=== PATIENT | male | born 1980 | race Caucasian/White ===

== ENCOUNTER 2018-09-19 14:48 | Emergency (ER) | payer SELFPAY ==
[2018-09-19 15:17] VITALS: BP 132/68
--- NOTE | 2018-09-19 15:54 | UC ---
"Minor Trauma HPI - HPI Summary HPI Summary: Patient states yesterday he was standing on a ladder Ze 7 feet. Patient states the ladder slipped and he fell landing on his back. Patient states he did not strike his head and did not lose consciousness. Patient states he's got pain in his back where he struck to 3 trunk when he fell. Patient also with pain in his right shoulder. Patient without blood from his HEENT. No neck pain. No chest pain or shortness of breath. No abdominal pain. No nausea vomiting. No hematuria. Patient has taken Motrin with little improvement. Last Motrin was approximately 8:00 this morning. Patient has been able to eat and drink. Patient states he was unable to get comfortable last night due to the pain in his back. Patient without any paresthesias down her arms or back. Patient does have a history of right rotator cuff injury but never had surgery. Patient states he intermittently uses marijuana and has used it for pain with little improvement. Patient states his significant other drove him here today. Patient's medications reviewed this visit. - History of Current Complaint Chief Complaint: UCBackPain Stated Complaint: SP FALL-BACK/RT SHOULDER PAIN Time Seen by Provider: 09/19/18 15:51 Hx Obtained From: Patient, Other: - Faustina Aguero | Reference #: [id number] [place] Onset/Duration: Sudden Onset Severity Initially: Moderate Severity Currently: Moderate Pain Intensity: 8 Pain Scale Used: 0-10 Numeric - Allergies/Home Medications Allergies/Adverse Reactions: Allergies Allergy/AdvReac Type Severity Reaction Status Date / Time No Known Allergies Allergy Verified 09/19/18 15:09 PMH/Surg Hx/FS Hx/Imm Hx Previously Healthy: Yes - Surgical History Surgical History: Yes Surgery Procedure, Year, and Place: appendectomy 1999 - Family History Known Family History: Positive: Non-Contributory - Social History Occupation: Employed Part-time Lives: With Family Alcohol Use: None Substance Use Type: None Substance Use Comment - Amount & Last Used: opiate addiction Smoking Status (MU): Current Every Day Smoker Type: Cigarettes Amount Used/How Often: 1/2-1 PK DAILY Review of Systems All Other Systems Reviewed And Are Negative: Yes Skin: Positive: Bruising, Other - abraison Eyes: Positive: Negative ENT: Positive: Negative Respiratory: Positive: Negative Cardiovascular: Positive: Negative Gastrointestinal: Positive: Negative Genitourinary: Positive: Negative Motor: Positive: Other - right shoulder, right back Musculoskeletal: Positive: Other: - right shoulder, low back Neurological: Positive: Negative Psychological: Positive: Negative Physical Exam - Summary Physical Exam Summary: Vital Signs Reviewed: Yes A+Ox3, mild discomfort Eyes: Conjunctiva Clear, RABIA. EOM intact and full ENT: Hearing grossly normal TM x 2 clear, no hemotymp b/l, no septal hematoma b /l mmoist, uvula midline, no exudate, no erythema, no blood oropharynx Neck: Positive: Supple Respiratory: Positive: No respiratory distress, No accessory muscle use + CTA throughout no w/r Cardiovascular: RRR nl s1, s2 no m/r CBT <2 sec abd soft + BS nt/nd no guarding, no distension Musculoskeletal Exam: Full AROM c spine. No spinous process pain c/t/l/s discomfort distal right paraspinal area distal thoracic, upper lumbar + SLE b/ l + flex/ext knee, ankle + great toe extension + TTP right anterior shoulder. No deformity + flex/ext elbow with pain in right anterior shoulder Neurological: Positive: Alert, + sensation throughout + thumb up, a ok, finger spread, finger cross + gross b/l equal sensation LE Psychological: Positive: Normal Response To Family Skin: Positive: no rash, no ecchymosis, small 5mm slight abrasion left lower thoracic paraspinal area Triage Information Reviewed: Yes Vital Signs: Initial Vital Signs Temp 99.3 F 09/19/18 15:10 Pulse 82 09/19/18 15:10 Resp 15 09/19/18 15:10 BP 132/68 09/19/18 15:10 Pulse Ox 96 09/19/18 15:10 Diagnostics - Radiology No standard instances Radiology Interpretation Completed By: Radiologist - neg shoulder, neg thoracic , neg lumbar spine Re-Evaluation - Re-Evaluation First Eval Re-Evaluation Time: 17:30 Change: Improved Comment: Pt states he is feeling relaxed and better. reviewed imaging with pt Minor Trauma Course/Dx - Course Course Of Treatment: Patient presents with pain in his right anterior shoulder his right paraspinal lower thoracic upper lumbar area status post a fall. Patient without any other injuries. Patient's vital signs are stable. On exam patient in obvious discomfort. Patient with tenderness right anterior shoulder. Patient resists range of motion for testing. Patient also with pain and right paraspinal but no spinous process pain. Distally intact in upper Motrin remedies. We'll give patient IM Toradol his last Motrin was approximate 8 or 9 this morning. We'll give Flexeril, patient has a ride home. We'll place arm and right sling. We'll check imaging. Discussed at length patient comfortable agreement with plan. We'll reassess after imaging and treatment - Differential Dx/Diagnosis Provider Diagnosis: Spasm of muscle of lower back, Right shoulder strain Discharge - Sign-Out/Discharge Documenting (check all that apply): Patient Departure All imaging exams completed and their final reports reviewed: Yes - Discharge Plan Condition: Improved Disposition: HOME Prescriptions: Cyclobenzaprine TAB* [Flexeril 10 MG TAB*] 10 mg PO TID PRN #15 tab PRN Reason: muscle spasm Patient Education Materials: Contusion in Adults (ED), Shoulder Sprain (ED), Muscle Spasm (ED) Referrals: No Primary Care Phys,NOPCP [Primary Care Provider] - [facility] [Outside] Additional Instructions: - Okay to alternate ibuprofen (Advil, Motrin) 600mg and Tylenol (acetaminophen) every 3hours as needed for pain. Take with food. Do NOT take for more than 4-5 days. -Take flexeril - muscle relaxer as prescribed - Do NOT drive, operate machinery or drink alcohol while taking Flexeril. - For the first 2 days, apply ice to your injured areas. AFter 2 days, switch to heat. - before icing, slow gentle stretching exercises are important -Contact your doctor today to arrange a follow-up appointment next week. -If you pain is uncontrolled - go to an emergency department for further treatment -wear sling for comfort and support. relax your shoulder so the sling holds the weight of your shoulder - Take your arm outside of your sling and fully bend/stretching of elbow and makes small circles at your shoulder as demonstrated in the urgent car -apply ice (20 min at a time) every 2-3 hours for the next 2 days - you have been a given a referral to physical therapy - okay to schedule if pain and spasms persist -you have been given the contact information for the physician referral center - this office will assist you in scheduling with a new primary care provider - Billing Disposition and Condition Condition: IMPROVED Disposition: Home"
[2018-09-19] MEDS ORDERED: Ketorolac INJ* 60 MG/2 ML VIAL IM ONE (16:02)
[2018-09-19] MEDS ORDERED: Cyclobenzaprine TAB* 10 MG PO ONE (16:03)
== END 2018-09-19 18:05 | disposition home or self-care (01) ==
LOC: UCCORT 14:48
DX: M62.830 Muscle spasm of back (principal); S43.401A Unspecified sprain of right shoulder joint, initial encounter; W11.XXXA Fall on and from ladder, initial encounter; Y92.9 Unspecified place or not applicable; F17.210 Nicotine dependence, cigarettes, uncomplicated
CPT/HCPCS: 72070; 72100; 96372; 99203; A9270-GY; G0463; J1885

== ENCOUNTER 2020-07-14 15:51 | Inpatient (IN) ==
[2020-07-14 17:53] LABS: Urine Appearance Cloudy; Urine Bilirubin Negative (Negative); Urine Blood Negative (Negative); Urine Color Amber; Urine Glucose Negative (Negative); Urine Ketones 1+ (Negative); Urine Nitrite Negative (Negative); Urine Protein 1+(30 mg/dL) (Negative); Urine Urobilinogen Positive (Negative)
[2020-07-14 18:08] LABS: Urine Bacteria 1+ (Absent); Urine Red Blood Cell Absent (Absent); Urine White Blood Cell Trace(0-5/hpf) (Absent)
[2020-07-14 18:23] LABS: Urine Benzodiazepine Screen None Detected (None Detect); Urine Cannabinoids Screen Presumptive Positive (None Detect); Urine Opiates Screen None Detected (None Detect)
[2020-07-14] MEDS ORDERED: Haloperidol 5 mg/ml SDV IV/IM 5 MG/ML AMP IM ONE (20:08)
[2020-07-14] MEDS ORDERED: Haloperidol 5 mg/ml SDV IV/IM 5 MG/ML AMP ONE (20:10)
[2020-07-14] MEDS ORDERED: Nicotine GUM 2MG FRUIT FLAVOR PO PRN (23:00)
[2020-07-14] MEDS ORDERED: Al Hydrox/Mg Hydrox/Simet LIQ 30 ML UDC PO PRN (23:57)
[2020-07-15] MEDS ORDERED: Nicotine PATCH 21 MG/24 HR PATCH TRANSDERM SCH (09:00)
[2020-07-15] MEDS ORDERED: Vitamin THERAPEUTIC TAB PO SCH (09:00)
[2020-07-15 11:48] VITALS: BP 107/63
== END 2020-07-15 14:30 | disposition home or self-care (01) | DRG 885 ==
LOC: ED 15:51 → BSU 20:00
PROVIDERS: ADMIT Psychiatry & Neurology Psychiatry; ATTEND Psychiatry & Neurology Psychiatry